=== PATIENT | female | born 1985 | race Caucasian/White ===

== ENCOUNTER 2017-05-14 08:42 | Emergency (ER) | payer BC ==
[~2017-05-14] VITALS: Ht 160 cm; Wt 106.6 kg
[~2017-05-14 08:42] MED LIST: ALLEGRA ALLERG180 MG PO; PREDNISONE PO; VISTARIL PO
[2017-05-14] MEDS ORDERED: ZOLOFT PO (08:54)
[2017-05-14] MEDS ORDERED: BACLOFEN10 MG PO (08:54)
== END 2017-05-14 09:53 | disposition home or self-care (01) ==
LOC: SED 08:42
DX: S01.111A Laceration without foreign body of right eyelid and periocular area, initial encounter (principal); F41.9 Anxiety disorder, unspecified; J45.909 Unspecified asthma, uncomplicated; Z79.899 Other long term (current) drug therapy; Z23 Encounter for immunization; W45.8XXA Other foreign body or object entering through skin, initial encounter; Y92.89 Other specified places as the place of occurrence of the external cause
CPT/HCPCS: 12011; 90471; 90715; 99283